=== PATIENT | male | born 1945 | race Caucasian/White ===

== ENCOUNTER 2017-05-22 16:48 | Inpatient (IN) | payer MEDICARE, OTHER ==
[~2017-05-22] VITALS: Ht 172.7 cm; Wt 68.5 kg
[~2017-05-22 16:48] MED LIST: ASPIRIN; ATENOLOL; DIOVAN; HYTRIN; VYTORIN
[2017-05-22 17:39] LABS: BASOPHILS # (AUTO) 0.1 K/uL (0.0-8.0); BASOPHILS % (AUTO) 0.8 % (0.0-2.0); EOSINOPHILS # (AUTO) 0.1 K/uL (0.0-0.7); EOSINOPHILS % (AUTO) 0.4 % (0.0-7.0); HEMATOCRIT 50.1 % (40-50); HEMOGLOBIN 16.5 G/DL (14.0-18.0); LYMPHOCYTES # (AUTO) 0.6 K/UL (0.8-4.8); LYMPHOCYTES % (AUTO) 4.7 % (20.5-51.5); MEAN CORPUSCULAR HEMOGLOBIN 30.4 UUG (27.0-31.0); MEAN CORPUSCULAR HGB CONC 33 g/dL (32.0-37.0); MEAN CORPUSCULAR VOLUME 92.6 FL (82.0-92.0); MONOCYTES # (AUTO) 0.5 K/UL (0.1-1.30); MONOCYTES % (AUTO) 3.8 % (0.0-11.0); NEUTROPHILS # (AUTO) 11.2 K/UL (1.8-8.9); NEUTROPHILS % (AUTO) 90.3 % (38.5-71.5); PLATELET COUNT (AUTO) 180 K/UL (150-450); RED BLOOD CELL COUNT(AUTO) 5.41 MIL/UL (4.7-6.1); WHITE BLOOD COUNT (AUTO) 12.5 K/UL (4.0-11.2)
[2017-05-22 18:02] LABS: ALANINE AMINOTRANSFERASE 36 U/L (16-63); ALKALINE PHOSPHATASE 59 U/L (50-136); ASPARTATE AMINOTRANSFERASE 24 U/L (15-37); BILIRUBIN,DIRECT 0.1 mg/dL (0.0-0.2); BILIRUBIN,TOTAL 0.4 mg/dL (0.2-1.0); CARBON DIOXIDE 28 mmol/L (21-32); CHLORIDE 105 mmol/L (98-107); CREATININE 1.4 mg/dL (0.6-1.3); GLUCOSE 144 mg/dL (74-106); POTASSIUM 3.6 mmol/L (3.5-5.1); UREA NITROGEN, BLOOD 14 mg/dL (7-18)
--- NOTE | 2017-05-22 19:45 | NUR ---
Pt. admitted to [facility], under care of Dr. Hardy. Belongs List completed
[2017-05-22 20:00] VITALS: BP 113/65
--- NOTE | 2017-05-22 20:30 | NUR ---
RECEIVED PATIENT TRANSFER FROM ER AT 2030 IN STABLE CONDITION. NO SIGNS OF DISTRESS. AMBULATORY. AO X4. WAS IMMEDIATELY SEEN BY DR. CAITLYN COUGHLIN. BED IN LOCKED POSITION, PATIENT NOT A FALL RISK. CALL LIGHT WITHIN REACH. BELONGINGS CHECKED. SAFETY AND COMFORT PROVIDED.
--- NOTE | 2017-05-22 22:00 | NUR ---
PATIENT COMPLAINED OF IV PUMP CONTINUOUSLY BEEPING. FLUSHED IV LINE, PATENT. CHECKED PRIMARY TUBING: NO PROBLEMS WITNESSED. CHANGED IV PUMP AND IT CONTINUES TO BEEP. PATIENT VERBALIZED: "IF IT BEEPS AGAIN, I WANT TO BE DISCHARGED, BECAUSE I NEED MY SLEEP TO GET BETTER". IV FLUIDS STOPPED AND WILL CONTINUE LATER IN SHIFT. PATIENT IS ABLE TO TOLERATE FLUIDS ORALLY. WILL LET PATIENT SLEEP UNTIL 0200 ON 05/23/17 WHEN IV ANTIBIOTICS HAVE TO BE GIVEN.
[2017-05-23 00:26] VITALS: BP 97/67
--- NOTE | 2017-05-23 02:00 | NUR ---
WENT INTO PATIENT'S ROOM TO ADMINISTER IV ANTIBIOTICS. NEW PRIMARY LINE, SECONDARY LINE STARTED WITH SAME PUMP. NO BEEPING COMPLAINED FROM PATIENT. PATIENT IS SLEEPING WELL.
[2017-05-23 04:00] VITALS: BP 107/63
[2017-05-23 05:41] LABS: *BILIRUBIN,URIN NEGATIVE (NEGATIVE); *BLOOD, URINE NEGATIVE (NEGATIVE); *CLARITY,URINE CLEAR (CLEAR); *COLOR,URINE YELLOW (YELLOW); *KETONES,URINE TRACE (NEGATIVE); *PROTEIN,URINE NEGATIVE (NEGATIVE); *UROBILINOGEN,URINE 0.2 E.U./dl (NORMAL); LEUKOCYTE ESTERASE ,URINE NEGATIVE (NEGATIVE); NITRITE, URINE NEGATIVE (NEGATIVE); UGLUCOSE NEGATIVE (NEGATIVE)
[2017-05-23 06:03] LABS: BACTERIA,URINE NONE SEEN /HPF (NONE SEEN); MUCUS,URINE FEW /LPF (0-FEW); RBC,URINE NONE SEEN /HPF (0-3); SQUAMOUS EPITHELIAL CELL,UR NONE SEEN /HPF (NONE SEEN); WBC,URINE 0-3 /HPF (0-3)
[2017-05-23 06:29] LABS: BASOPHILS % (AUTO) 0.6 % (0.0-2.0); EOSINOPHILS # (AUTO) 0.3 K/uL (0.0-0.7); EOSINOPHILS % (AUTO) 4.2 % (0.0-7.0); LYMPHOCYTES # (AUTO) 1.3 K/UL (0.8-4.8); MEAN CORPUSCULAR HEMOGLOBIN 30.8 UUG (27.0-31.0); MEAN CORPUSCULAR HGB CONC 33 g/dL (32.0-37.0); MEAN CORPUSCULAR VOLUME 92.6 FL (82.0-92.0); MONOCYTES # (AUTO) 0.6 K/UL (0.1-1.30); MONOCYTES % (AUTO) 7.3 % (0.0-11.0); NEUTROPHILS # (AUTO) 5.4 K/UL (1.8-8.9); NEUTROPHILS % (AUTO) 70.9 % (38.5-71.5); PLATELET COUNT (AUTO) 161 K/UL (150-450); RED BLOOD CELL COUNT(AUTO) 4.54 MIL/UL (4.7-6.1); WHITE BLOOD COUNT (AUTO) 7.6 K/UL (4.0-11.2)
[2017-05-23 08:57] LABS: ALANINE AMINOTRANSFERASE 28 U/L (16-63); ALKALINE PHOSPHATASE 57 U/L (50-136); ASPARTATE AMINOTRANSFERASE 17 U/L (15-37); BILIRUBIN,TOTAL 0.3 mg/dL (0.2-1.0); CARBON DIOXIDE 26 mmol/L (21-32); CHLORIDE 111 mmol/L (98-107); CREATININE 1.3 mg/dL (0.6-1.3); GLUCOSE 112 mg/dL (74-106); POTASSIUM 4.1 mmol/L (3.5-5.1); TOTAL PROTEIN, SERUM 5.7 g/dL (6.4-8.2); UREA NITROGEN, BLOOD 14 mg/dL (7-18)
[2017-05-23 12:00] VITALS: BP 129/78
--- NOTE | 2017-05-23 12:45 | NUR ---
STATES REFUSES TO WAIT FOR TO SEE HIM AND IS LEAVING RIGHT NOW. IV D/C'D. ESCORTED TO /PRIVATE VEHICLE FOR DISCHARGE. DR. HERNANDEZ NOTIFIED.
== END 2017-05-23 12:45 | disposition left against medical advice (07) | DRG 871 ==
LOC: ER 16:50 → TELE 19:44
PROVIDERS: ADMIT Internal Medicine; ATTEND Internal Medicine
DX: A41.9 Sepsis, unspecified organism (principal); J69.0 Pneumonitis due to inhalation of food and vomit; N17.0 Acute kidney failure with tubular necrosis; E87.0 Hyperosmolality and hypernatremia; I95.9 Hypotension, unspecified; J06.9 Acute upper respiratory infection, unspecified; Z88.0 Allergy status to penicillin; N20.0 Calculus of kidney; J45.909 Unspecified asthma, uncomplicated; Z87.442 Personal history of urinary calculi; Z98.890 Other specified postprocedural states; E78.5 Hyperlipidemia, unspecified; I10 Essential (primary) hypertension; N40.0 Benign prostatic hyperplasia without lower urinary tract symptoms
CPT/HCPCS: 36415; 70030-TC; 71010; 83605; 85025; 85610; 85730; 87040; 87086; 93005; 93307; A4663; J0696; J1956; J3370; J3490; J7030; J7050; Q0144

== ENCOUNTER 2018-12-01 01:49 | Emergency (ER) | payer MEDICARE, OTHER ==
[~2018-12-01] VITALS: Ht 172.7 cm; Wt 68.9 kg
[2018-12-01 02:25] LABS: BASOPHILS % (AUTO) 1.1 % (0.0-2.0); EOSINOPHILS # (AUTO) 0.3 K/uL (0.0-0.7); HEMATOCRIT 47.6 % (36.7-47.1); HEMOGLOBIN 16.1 g/dL (12.5-16.3); LYMPHOCYTES # (AUTO) 1.2 K/uL (20.0-40.0); LYMPHOCYTES % (AUTO) 32.5 % (20.5-51.5); MEAN CORPUSCULAR HEMOGLOBIN 31.5 uug (23.8-33.4); MEAN CORPUSCULAR HGB CONC 34 g/dL (32.5-36.3); MEAN CORPUSCULAR VOLUME 93.2 fL (73.0-96.2); MONOCYTES # (AUTO) 0.4 K/uL (2.0-10.0); MONOCYTES % (AUTO) 9.8 % (0.0-11.0); NEUTROPHILS # (AUTO) 1.8 K/uL (1.8-8.9); NEUTROPHILS % (AUTO) 49.6 % (38.5-71.5); PLATELET COUNT (AUTO) 169 K/uL (152-348); RED BLOOD CELL COUNT(AUTO) 5.11 MIL/uL (4.06-5.63); WHITE BLOOD COUNT (AUTO) 3.7 K/uL (3.6-10.2)
[2018-12-01 02:33] LABS: CARBON DIOXIDE 28 mmol/L (21-32); CHLORIDE 101 mmol/L (98-107); CREATININE 1.2 mg/dL (0.6-1.3); GLUCOSE 114 mg/dL (74-106); POTASSIUM 3.8 mmol/L (3.5-5.1); UREA NITROGEN, BLOOD 25 mg/dL (7-18)
[2018-12-01 02:39] LABS: ALANINE AMINOTRANSFERASE 32 U/L (16-63); ALKALINE PHOSPHATASE 68 U/L (50-136); ASPARTATE AMINOTRANSFERASE 19 U/L (15-37); BILIRUBIN,DIRECT 0.1 mg/dL (0.0-0.2); BILIRUBIN,TOTAL 0.2 mg/dL (0.2-1.0)
--- NOTE | 2018-12-01 02:39 | NUR ---
Patient bib [id number]. Patient's called 911 upon patient waking up and having some difficulty breathing. AAOx4. Speech is clear, speaks in complete sentences. No neuro deficits noted. No signs of respiratory distress. No cardiovascular distress noted. Patient in bed at lowest position, side rails upx2, call light within reach. Patient's at bedside.
--- NOTE | 2018-12-01 02:56 | NUR ---
Patient discharged to home in stable conditon. Written and verbal after care instructions given. Patient verbalizes understanding of instructions. Patient ambulated with stable gait.
[2018-12-01 02:57] VITALS: BP 130/60
== END 2018-12-01 03:00 | disposition home or self-care (01) ==
LOC: ER 01:49
DX: K21.9 Gastro-esophageal reflux disease without esophagitis (principal); J45.909 Unspecified asthma, uncomplicated; Z88.0 Allergy status to penicillin; Z88.1 Allergy status to other antibiotic agents; Z79.82 Long term (current) use of aspirin; Z79.899 Other long term (current) drug therapy
CPT/HCPCS: 36415; 70030-TC; 70360; 71045; 85025; 93005; A4663